=== PATIENT | female | born 1990 | race African-American/Black ===

== ENCOUNTER 2018-10-05 15:54 | Inpatient (IN) ==
[2018-10-05 18:30] LABS: Apearance,Urine CLOUDY (Clear); Bilirubin,Urine Negative (Negative); Blood, Urine Large mg/dL (Negative); Glucose,Urine (UA) 50 mg/dL (Negative); Ketones,Urine 20 mg/dL (Negative); Nitrite,Urine Negative (Negative); Protein,Urine >=500 MG/DL; RBC,Urine 67246 /HPF (0-4); Urine Color Red (Yellow); Urine Specific Gravity 1.025 (1.001-1.035); Urine Urobilinogen < 2.0 EU/DL (0.2-1.0)
[2018-10-05 18:47] LABS: Basophils # 0.1 10*3/uL (0.0-0.2); Hemoglobin 7.9 GM/DL (12.0-16.0); Lymphocytes % 10.3 % (21.3-54.2)
[2018-10-05 18:59] LABS: Basophils % 0.3 % (0.0-0.8); Eosinophils # 0.1 10*3/uL (0.0-0.87); Eosinophils % 0.3 % (0.00-10.9); Hematocrit 27.7 VOL% (35.7-47.0); Immature Granulocytes Absolute 0.19 #; Lymphocytes # 2.1 10*3/uL (1.4-4.0); Mean Corpuscular HGB Conc 28.5 GM/DL (32-36); Mean Corpuscular Volume 72.7 FL (87-102); Mean Platelet Volume 9.8 FL (9.6-12.0); Monocytes % 4.9 % (1.7-12.7); Neutrophils % 83.2 % (38.7-73.9); Platelet Count 384 T/CUMM (130-400); Red Blood Count 3.81 MC/CUMM (3.8-5.5); White Blood Count 19.9 T/CUMM (4-12)
[2018-10-05] MEDS ORDERED: LACTATED RINGERS 250 ML IV ONE (19:05)
[2018-10-05 19:14] LABS: Anisocytosis 1+; Lymphocytes 10 % (20-55); Platelet Estimate Normal; Poikilocytosis 1+; Segmented Neutrophils 86 % (50-85); Total Cells Counted 100
[2018-10-05 19:15] LABS: Hypochromasia 1+; Polychromasia Few; Tear Drop Cells Slight
[2018-10-05 19:16] LABS: Microcytosis 1+
[2018-10-05] MEDS ORDERED: ONDANSETRON 4 MG/2 ML VIAL IV PRN ×2 (19:18→20:58)
[2018-10-05] MEDS ORDERED: OXYTOCIN/LR 20 UNIT/1,000 ML BAG IV PRN (19:20)
[2018-10-05] MEDS ORDERED: LACTATED RINGERS 1,000 ML IV SCH ×2 (19:30)
[2018-10-05] MEDS ORDERED: MEPERIDINE 25 MG/1 ML VIAL IV PRN ×2 (19:47)
[2018-10-05] MEDS ORDERED: miSOPROStol 200 MCG TABLET ONE (20:28)
[2018-10-05] MEDS ORDERED: SODIUM CHLORIDE 0.9% 1,000 ML IV PRN (20:33)
[2018-10-05 20:53] LABS: Barbiturates Screen,Urine Negative (Negative); Benzodiazepines Screen,Urine Negative (Negative); Cannabinoid Screen,Urine Negative (Negative); Opiate Screen,Urine Negative (Negative); Phencyclidine Screen,Urine Negative (Negative)
[2018-10-05] MEDS ORDERED: oxyCODONE/ACETAMINOPHEN 5-325 MG TABLET PO PRN ×2 (20:58)
[2018-10-05] MEDS ORDERED: HYDROCORTISONE 2.5% RECTAL CREAM 30 GM TUBE TOP PRN (20:58)
[2018-10-05] MEDS ORDERED: BENZOCAINE 20%/MENTHOL 0.5% SPRAY 56 GM CAN TOP PRN (20:58)
[2018-10-05] MEDS ORDERED: BISACODYL 10 MG SUPP RECTAL PRN (20:58)
[2018-10-05] MEDS ORDERED: LANOLIN 50% CREAM 0.3 OZ TUBE TOP PRN (20:58)
[2018-10-05] MEDS ORDERED: WITCH HAZEL PADS 100/JAR TOP PRN (20:58)
[2018-10-05] MEDS ORDERED: RHO(D) IMMUNE GLOBULIN 300 MCG SYRINGE IM ONE (20:58)
[2018-10-05] MEDS ORDERED: ACETAMINOPHEN 325 MG TABLET PO PRN (20:58)
[2018-10-05] MEDS ORDERED: MEASLES/MUMPS/RUBELLA VACCINE 0.5 ML VIAL SUBCUT ONE (20:58)
[2018-10-05] MEDS ORDERED: OXYTOCIN/LR 20 UNIT/1,000 ML BAG IV ONE (20:58)
[2018-10-05] MEDS ORDERED: DIPH/TET/ACEL PERT BOOSTER VACCINE 0.5 ML VIAL IM ONE (20:58)
[2018-10-05] MEDS ORDERED: ceFAZolin 1,000 MG in SYRINGE 1 EACH IV ONE (21:08)
[2018-10-05] MEDS: IBUPROFEN 800 MG TABLET PO PRN (23:00)
[2018-10-06] MEDS ORDERED: OXYTOCIN/LR 20 UNIT/1,000 ML BAG IV ONE (03:35)
[2018-10-06 05:23] LABS: Basophils # 0.1 10*3/uL (0.0-0.2); Basophils % 0.2 % (0.0-0.8); Hematocrit 23.3 VOL% (35.7-47.0); Hemoglobin 7.5 GM/DL (12.0-16.0); Immature Granulocytes % 1.3 %; Immature Granulocytes Absolute 0.36 #; Lymphocytes # 2.5 10*3/uL (1.4-4.0); Lymphocytes % 9.1 % (21.3-54.2); Mean Corpuscular HGB Conc 32.2 GM/DL (32-36); Mean Corpuscular Volume 78.2 FL (87-102); Mean Platelet Volume 9.2 FL (9.6-12.0); Monocytes % 6.1 % (1.7-12.7); Neutrophils % 83.3 % (38.7-73.9); Platelet Count 264 T/CUMM (130-400); Red Blood Count 2.98 MC/CUMM (3.8-5.5); Red Cell Distribution Width 19.9 % (9.3-17.3); White Blood Count 27.1 T/CUMM (4-12)
[2018-10-06] MEDS: IBUPROFEN 800 MG TABLET PO PRN ×2 (05:24→18:05)
[2018-10-06 05:46] LABS: Lymphocytes 8 % (20-55); Segmented Neutrophils 86 % (50-85); Total Cells Counted 100
[2018-10-06 05:47] LABS: Hypochromasia 1+; Platelet Estimate Normal
[2018-10-06 05:48] LABS: Anisocytosis 1+; Microcytosis 1+; Ovalocytes 1+; Reactive Lymphocytes Few
[2018-10-06] MEDS ORDERED: SODIUM CHLORIDE 0.9% 1,000 ML IV PRN (09:31)
[2018-10-06] MEDS: FERROUS SULFATE 325 MG TABLET PO SCH ×3 (09:47→20:15)
[2018-10-06] MEDS: DOCUSATE SODIUM 100 MG CAPSULE PO SCH ×2 (09:47→20:17)
[2018-10-07 05:34] LABS: Basophils # 0.1 10*3/uL (0.0-0.2); Basophils % 0.4 % (0.0-0.8); Eosinophils # 0.1 10*3/uL (0.0-0.87); Eosinophils % 0.9 % (0.00-10.9); Hematocrit 26.9 VOL% (35.7-47.0); Hemoglobin 8.3 GM/DL (12.0-16.0); Immature Granulocytes % 1.3 %; Lymphocytes # 3.7 10*3/uL (1.4-4.0); Lymphocytes % 23.8 % (21.3-54.2); Mean Corpuscular HGB Conc 30.9 GM/DL (32-36); Mean Corpuscular Volume 80.1 FL (87-102); Mean Platelet Volume 9.7 FL (9.6-12.0); Monocytes % 7.4 % (1.7-12.7); Neutrophils % 66.2 % (38.7-73.9); Platelet Count 241 T/CUMM (130-400); Red Blood Count 3.36 MC/CUMM (3.8-5.5); Red Cell Distribution Width 19.4 % (9.3-17.3); White Blood Count 15.7 T/CUMM (4-12)
[2018-10-07 07:15] VITALS: BP 91/53
[2018-10-07] MEDS: DOCUSATE SODIUM 100 MG CAPSULE PO SCH (09:36)
[2018-10-07] MEDS: FERROUS SULFATE 325 MG TABLET PO SCH (09:36)
== END 2018-10-07 11:00 | disposition home or self-care (01) | DRG 560 ==
LOC: N.ED 15:54 → N.LD 18:41 → N.LDOUT 18:41 → N.LD 18:51 → N.SDSINP 23:15 → N.OB 23:15 → UNDODISIN 10-07 11:00
PROVIDERS: ADMIT Obstetrics & Gynecology; ATTEND Obstetrics & Gynecology

== ENCOUNTER 2020-11-14 23:45 | Inpatient (IN) ==
[2020-11-15] MEDS ORDERED: LACTATED RINGERS 1,000 ML IV ONE (00:07)
[2020-11-15] MEDS ORDERED: ONDANSETRON 4 MG/2 ML VIAL IV PRN (00:07)
[2020-11-15] MEDS ORDERED: FAMOTIDINE 20 MG/2 ML VIAL IV ONE (00:11)
[2020-11-15] MEDS ORDERED: ONDANSETRON 4 MG/2 ML VIAL IV ONE (00:11)
[2020-11-15] MEDS ORDERED: CITRIC ACID/SODIUM CITRATE 30 ML UDCUP PO ONE (00:11)
[2020-11-15] MEDS ORDERED: hydrOXYzine HCL 25 MG/1 ML VIAL IM PRN (00:11)
[2020-11-15] MEDS ORDERED: diphenhydrAMINE 50 MG/1 ML VIAL IV PRN ×2 (00:11)
[2020-11-15] MEDS ORDERED: NALOXONE 0.4 MG/ML VIAL IV PRN (00:11)
[2020-11-15] MEDS ORDERED: PROMETHAZINE 25 MG/1 ML VIAL IM ONE (00:11)
[2020-11-15 00:59] LABS: Albumin 2.2 G/DL (3.4-5.0); Bilirubin,Total 0.4 MG/DL (0.20-1.00); Calcium 7.8 MG/DL (8.5-10.1); Osmolality,Calculated 274.5 MOS/KG (273-304); Potassium 3.3 MMOL/L (3.5-5.1); Total Protein 6.2 G/DL (6.4-8.2)
[2020-11-15 01:10] LABS: Basophils % 0.2 % (0.0-0.8); Eosinophils # 0.2 10*3/uL (0.0-0.87); Eosinophils % 1.4 % (0.00-10.9); Hematocrit 23.8 VOL% (35.7-47.0); Hemoglobin 6.7 GM/DL (12.0-16.0); Immature Granulocytes % 1.4 %; Immature Granulocytes Absolute 0.24 #; Lymphocytes # 2.9 10*3/uL (1.4-4.0); Lymphocytes % 17.4 % (21.3-54.2); Mean Corpuscular HGB Conc 28.2 GM/DL (32-36); Mean Corpuscular Volume 70.2 FL (87-102); Mean Platelet Volume 9.2 FL (9.6-12.0); Monocytes % 7.2 % (1.7-12.7); NRBC # 0.04 10*3/uL; Neutrophils % 72.4 % (38.7-73.9); Platelet Count 332 T/CUMM (130-400); Red Blood Count 3.39 MC/CUMM (3.8-5.5); Red Cell Distribution Width 18.5 % (9.3-17.3); White Blood Count 16.7 T/CUMM (4-12)
[2020-11-15] MEDS: LACTATED RINGERS 1,000 ML IV SCH ×3 (01:24→08:32)
[2020-11-15] MEDS ORDERED: SODIUM CHLORIDE 0.9% 1,000 ML IV PRN (01:54)
[2020-11-15] MEDS: fentaNYL 2 MCG/ROPIV 0.2% EPID 100 ML EPIDURAL SCH ×2 (02:45→10:15)
[2020-11-15 03:00] LABS: Hypochromasia 1+; Microcytosis 2+; Ovalocytes 1+; Platelet Estimate Normal
[2020-11-15 03:01] LABS: Tear Drop Cells Few
[2020-11-15] MEDS: ePHEDrine 50 MG/ML VIAL IV PRN ×3 (03:36→04:11)
[2020-11-15 04:27] LABS: Bilirubin,Urine Negative (Negative); Blood, Urine Negative (Negative); Glucose,Urine (UA) Negative (Negative); Ketones,Urine 5 mg/dL (Negative); Mucus,Urine Occasional /LPF (Occasional); Nitrite,Urine Negative (Negative); Protein,Urine Negative; RBC,Urine 2 /HPF (0-4); Squamous Epithelial Cell,Urine Occasional /HPF (0-10); Urine Appearance CLEAR (Clear); Urine Color Yellow (Yellow); Urine Specific Gravity 1.011 (1.001-1.035)
[2020-11-15] MEDS ORDERED: miSOPROStoL 200 MCG TABLET ONE ×2 (06:30→11:19)
[2020-11-15] MEDS ORDERED: TRANEXAMIC ACID 1,000 MG/10 ML VIAL ONE (06:30)
[2020-11-15] MEDS ORDERED: OXYTOCIN/LR 20 UNIT/1,000 ML BAG IV ONE ×2 (06:30→16:43)
[2020-11-15] MEDS ORDERED: METHYLERGONOVINE 0.2 MG/1 ML AMP ONE ×2 (06:31→11:02)
[2020-11-15] MEDS ORDERED: CARBOPROST TROMETHAMINE 250 MCG/ML AMP IM ONE ×2 (06:31→11:02)
[2020-11-15] MEDS ORDERED: OXYTOCIN/LR 20 UNIT/1,000 ML BAG IV SCH (08:00)
[2020-11-15 11:44] LABS: Cord Venous Blood HCO3 21.8 MMOL/L; Cord Venous Blood PCO2 44.1 MMHG
[2020-11-15] MEDS ORDERED: IBUPROFEN 800 MG TABLET PO ONE (14:08)
[2020-11-15] MEDS ORDERED: BISACODYL 10 MG SUPP RECTAL PRN (16:43)
[2020-11-15] MEDS ORDERED: LANOLIN 50% CREAM 0.3 OZ TUBE TOP PRN (16:43)
[2020-11-15] MEDS ORDERED: oxyCODONE/ACETAMINOPHEN 5-325 MG TABLET PO PRN (16:43)
[2020-11-15] MEDS ORDERED: BENZOCAINE 20%/MENTHOL 0.5% SPRAY 56 GM CAN TOP PRN (16:43)
[2020-11-15] MEDS ORDERED: DIPH/TET/ACEL PERT BOOSTER VACCINE 0.5 ML VIAL IM ONE (16:43)
[2020-11-15] MEDS ORDERED: RHO(D) IMMUNE GLOBULIN 300 MCG SYRINGE IM ONE (16:43)
[2020-11-15] MEDS ORDERED: MEASLES/MUMPS/RUBELLA VACCINE 0.5 ML VIAL SUBCUT ONE (16:43)
[2020-11-15] MEDS ORDERED: WITCH HAZEL PADS 100/JAR TOP PRN (16:43)
[2020-11-15] MEDS ORDERED: ACETAMINOPHEN 325 MG TABLET PO PRN (16:43)
[2020-11-15] MEDS ORDERED: HYDROCORTISONE 2.5% RECTAL CREAM 30 GM TUBE TOP PRN (16:43)
[2020-11-15 20:11] LABS: Basophils % 0.2 % (0.0-0.8); Eosinophils # 0.1 10*3/uL (0.0-0.87); Eosinophils % 0.6 % (0.00-10.9); Hematocrit 30.2 VOL% (35.7-47.0); Immature Granulocytes % 0.8 %; Immature Granulocytes Absolute 0.15 #; Lymphocytes # 1.7 10*3/uL (1.4-4.0); Lymphocytes % 9.1 % (21.3-54.2); Mean Corpuscular HGB Conc 29.8 GM/DL (32-36); Mean Corpuscular Volume 72.9 FL (87-102); Mean Platelet Volume 9.4 FL (9.6-12.0); Monocytes % 7.3 % (1.7-12.7); NRBC # 0.03 10*3/uL; Platelet Count 257 T/CUMM (130-400); Red Blood Count 4.14 MC/CUMM (3.8-5.5); Red Cell Distribution Width 20.6 % (9.3-17.3); White Blood Count 18.4 T/CUMM (4-12)
[2020-11-15] MEDS: IBUPROFEN 800 MG TABLET PO PRN (21:18)
[2020-11-15] MEDS: DOCUSATE SODIUM 100 MG CAPSULE PO SCH (21:18)
[2020-11-16 04:40] LABS: Basophils % 0.2 % (0.0-0.8); Eosinophils # 0.2 10*3/uL (0.0-0.87); Eosinophils % 1.2 % (0.00-10.9); Hemoglobin 9.1 GM/DL (12.0-16.0); Immature Granulocytes % 1.1 %; Immature Granulocytes Absolute 0.18 #; Lymphocytes # 1.9 10*3/uL (1.4-4.0); Lymphocytes % 11.2 % (21.3-54.2); Mean Corpuscular HGB Conc 29.4 GM/DL (32-36); Mean Corpuscular Volume 73.5 FL (87-102); Mean Platelet Volume 9.6 FL (9.6-12.0); NRBC # 0.03 10*3/uL; Neutrophils % 79.3 % (38.7-73.9); Platelet Count 274 T/CUMM (130-400); Red Blood Count 4.22 MC/CUMM (3.8-5.5); Red Cell Distribution Width 20.4 % (9.3-17.3); White Blood Count 17.1 T/CUMM (4-12)
[2020-11-16] MEDS: DOCUSATE SODIUM 100 MG CAPSULE PO SCH ×2 (07:35→20:24)
[2020-11-16] MEDS: IBUPROFEN 800 MG TABLET PO PRN (07:42)
[2020-11-16] MEDS: oxyCODONE/ACETAMINOPHEN 5-325 MG TABLET PO PRN ×2 (16:05→20:23)
[2020-11-17] MEDS: IBUPROFEN 800 MG TABLET PO PRN (07:41)
[2020-11-17 08:22] VITALS: BP 108/69
[2020-11-17] MEDS: DOCUSATE SODIUM 100 MG CAPSULE PO SCH (09:20)
== END 2020-11-17 12:00 | disposition home or self-care (01) | DRG 560 ==
LOC: N.LDOUT 23:45 → N.LD 23:46 → N.OB 11-15 20:05
PROVIDERS: ADMIT Obstetrics & Gynecology; ATTEND Obstetrics & Gynecology